=== PATIENT | male | born 1945 | race Caucasian/White ===

== ENCOUNTER 2017-06-04 22:46 | Emergency (ER) | payer OTHER ==
[2017-06-04] MEDS ORDERED: NS 1,000 ML IV ONE (22:54)
--- NOTE | 2017-06-04 22:54 | EDPHY ---
H & P Stated Complaint: CP Time Seen by Provider: 06/04/17 22:54 HPI/ROS: HPI CHIEF COMPLAINT: Left-sided chest pain worse with movement and cough HISTORY OF PRESENT ILLNESS: This patient is a 71-year-old male, he has a history of atrial flutter, normal exercise stress test in 2014, presents emergency room left-sided chest discomfort. Describes is rather sharp pain rather severe nonradiating worse when he coughs or takes a deep breath in. Additionally when he moves the left side of his arm left chest he gets severe left-sided chest pain. He states since or 3 days ago he developed an upper respiratory tract infection with postnasal drip and a cough. Nonproductive in sputum production. He states that every time he coughs he gets rather severe pain left side of his chest. When he does not move or does not cough he has no pain. He has been taking Robitussin and Claritin however this is not been really helping him. Decided come the emergency room as he has severe pain when he coughs or moves. Denies really shortness of breath. Does have some pleuritic pain he takes deep breath in left side of the chest. Past Medical History: History of atrial flutter, 2000 history history of cardiac evaluation with a negative exercise treadmill EF 65% Past Surgical History: Right clavicle surgery. Social History: Denies drugs alcohol tobacco. Family History: Noncontributory ROS REVIEW OF SYSTEMS: A comprehensive 10 point review of systems is otherwise negative aside from elements mentioned in the history of present illness. Exam Constitutional appears well nontoxic no acute distress, triage nursing summary reviewed, vital signs reviewed, awake/alert. Eyes normal conjunctivae and sclera, EOMI, PERRLA. HENT normal inspection, atraumatic, moist mucus membranes, no epistaxis, neck supple/ no meningismus, no raccoon eyes. Respiratory bronchitic sounding cough on exam, clear to auscultation bilaterally, normal breath sounds, no respiratory distress, faint wheezing. Bilaterally. Cardiovascular : Chest wall tender palpation when I press on his left anterior chest wall, no crepitus, rate normal, regular rhythm, no murmur, no edema, distal pulses normal. Gastrointestinal soft, non-tender, no rebound, no guarding, normal bowel sounds, no distension, no pulsatile mass. Genitourinary no CVA tenderness. Musculoskeletal no midline vertebral tenderness, full range of motion, no calf swelling, no tenderness of extremities, no meningismus, good pulses, neurovascularly intact. Skin pink, warm, & dry, no rash, skin atraumatic. Neurologic awake, alert and oriented x 3, AAOx3, moves all 4 extremities equally, motor intact, sensory intact, CN II-XII intact, normal cerebellar, normal vision, normal speech. Psychiatric normal mood/affect. Heme/Lymph/Immune no lymphadenopathy. Differential diagnosis includes but is not limited to: ACS, atypical chest pain , pneumothorax, pneumonia, pulmonary embolism, aortic dissection, congestive heart failure, tumor, musculoskeletal pain, esophageal pain, GERD, peptic ulcer disease, pancreatitis Medical Decision Making: Plan for this patient IV establishment full director of cardiac cath lab obtain EKG to rule out acute coronary syndrome and troponin, however clinically his symptoms are consistent with musculoskeletal chest pain. Or pleurisy. He has severe pain when he coughs or moves left side of his chest. No pain when he is at rest. Re-evaluation: EKG interpretation by me on record in [facility] system. Impression time of EKG 230, sinus rhythm rate of [address] elevation no ST depression no T -wave abnormalities unremarkable nonischemic EKG. When I compare this EKG to his old EKG dated 09/29/2014 is very similar morphology. 2303: Plan for this patient DuoNeb breathing treatment, Toradol for pain control, chest x-ray, D-dimer, troponin EKG. Re-evaluate. This is most likely respiratory/musculoskeletal. 0128: Notified by nursing staff that this patient had a left upper arm IV tourniquet left on. The tourniquet was removed. His left arm is neurovascular intact. Good distal pulse. Good cap refill. Superficial left arm skin impression from tourniquet. I apologized to him about this being left on. He is comfortable with this. As for his chest discomfort. Plan will be for repeat EKG repeat troponin however most likely this is musculoskeletal and with pulmonary process. Plan will be to give albuterol inhaler, prednisone, azithromycin and cough medicine. The patient is comfortable this plan. Will repeat his EKG and troponin however highly unlikely to be acute coronary syndrome. 0200: Patient resting comfortably. EKG interpretation by me on record in [employer] system. Impression this is a repeat EKG time of EKG 1:49 a.m., sinus rhythm rate of 62. No ST elevation no ST depression no significant T-wave abnormalities. EKG is similar to previous EKGs. 0233: Re-examination at this time this patient is resting comfortably. He has no chest pain. He states he feels much better after DuoNeb breathing treatment and IV Toradol. He has had a repeat EKG repeat troponin they are stable. Negative for elevation in troponin and negative for ischemia on the EKG. He has no chest pain. He would like to go home. I prescribed him albuterol, 2 puffs every 4 hr, azithromycin and prednisone. On re-examination his lungs they are clear. Return precautions discussed. He understands return emergency room if develops worsening symptoms includes chest pain, shortness of breath, fever, vomiting questions or concerns. Source: Patient - Personal History Current Tetanus/Diphtheria Vaccine: No Current Tetanus Diphtheria and Acellular Pertussis (TDAP): No - Medical/Surgical History Hx Asthma: No Hx Chronic Respiratory Disease: No Hx Diabetes: No Hx Cardiac Disease: Yes Hx Renal Disease: No Hx Cirrhosis: No Hx Alcoholism: No Hx HIV/AIDS: No Hx Splenectomy or Spleen Trauma: No Other PMH: AFLUTTER, MELLANOMA, RT ROTATOR CUFF, Retinal detachment 10 years ago. - Social History Smoking Status: Never smoked Constitutional: Initial Vital Signs Temperature (C) 36.6 C 06/04/17 22:47 Heart Rate 85 06/04/17 22:47 Respiratory Rate 16 06/04/17 22:47 Blood Pressure 143/77 H 06/04/17 22:47 O2 Sat (%) 95 06/04/17 22:47 O2 Delivery Mode Room Air Allergies/Adverse Reactions: No Known Allergies Allergy (Unverified 06/05/17 00:16) Home Medications: Medication Instructions Recorded Aspirin [Aspirin 81mg (*)] 81 mg PO DAILY 09/29/14 Hydrochlorothiazide [HCTZ (*)] 25 mg PO DAILY 09/29/14 Simvastatin [Zocor] 40 mg PO HS 09/29/14 rOPINIRole HCL [Requip 2mg (*)] 2 mg PO 12,15 09/29/14 rOPINIRole HCL [Requip 2mg (*)] 8 mg PO HS 09/29/14 Hydrocortisone Acetate [Anucort-Hc] 25 mg RC DAILY #10 supp.rect 05/09/15 Polyethylene Glycol 3350 [Miralax] 17 gm PO DAILY #10 pkt 05/09/15 Azithromycin [Zithromax] 250 mg PO DAILY #6 tab 06/05/17 Hydrocodone/APAP 5/325 [[place] 1 - 2 tab PO Q4H PRN #10 tab 06/05/17 5/325] predniSONE 60 mg PO DAILY #15 tab 06/05/17 Medical Decision Making - Diagnostics Imaging Results: Imaging Impressions Chest X-Ray 06/04/17 22:54 Impression: Clear lungs. Negative portable chest. - Data Points Laboratory Results: Laboratory Results 06/04/17 23:09 06/04/17 23:09 06/05/17 06/04/17 06/04/17 01:55 23:09 23:09 WBC RBC Hgb Hct MCV MCH MCHC RDW Plt Count MPV Neut % (Auto) Lymph % (Auto) [place] % (Auto) Eos % (Auto) Baso % (Auto) Nucleat RBC Rel Count Absolute Neuts (auto) Absolute Lymphs (auto) Absolute Monos (auto) Absolute Eos (auto) Absolute Basos (auto) Absolute Nucleated RBC Immature Gran % Immature Gran # PT 13.1 SEC SEC (12.0-15.0) INR 0.97 (0.83-1.16) APTT 26.1 SEC SEC (23.0-38.0) D-Dimer 0.49 ug/mLFEU ug/mLFEU (0.00-0.50) Sodium 140 mEq/L mEq/L (135-145) Potassium 4.1 mEq/L mEq/L (3.5-5.2) Chloride 101 mEq/L mEq/L (97-110) Carbon Dioxide 29 mEq/l mEq/l (22-31) Anion Gap 10 mEq/L mEq/L (8-16) BUN 20 mg/dL mg/dL (7-23) Creatinine 0.8 mg/dL mg/dL (0.7-1.3) Estimated GFR > 60 Glucose 102 mg/dL H mg/dL (70-100) Calcium 8.6 mg/dL mg/dL (8.5-10.4) Magnesium 2.0 mg/dL mg/dL (1.6-2.3) Total Bilirubin 0.6 mg/dL mg/dL (0.1-1.4) Conjugated Bilirubin 0.2 mg/dL mg/dL (0.0-0.5) Unconjugated Bilirubin 0.4 mg/dL mg/dL (0.0-1.1) AST 28 IU/L IU/L (17-59) ALT 21 IU/L IU/L (21-72) Alkaline Phosphatase 83 IU/L IU/L (38-126) Creatine Kinase 134 IU/L IU/L (0-224) CK-MB (CK-2) Fraction 2.20 ng/mL ng/mL (0.00-3.19) Troponin I < 0.012 ng/mL ng/mL < 0.012 ng/mL ng/mL (0.000-0.034) (0.000-0.034) NT-Pro-B Natriuret Pep 138 pg/mL H pg/mL (0-125) Total Protein 5.9 g/dL L g/dL (6.3-8.2) Albumin 3.7 g/dL g/dL (3.5-5.0) Lipase 114 IU/L IU/L (23-300) 06/04/17 23:09 WBC 6.33 10^3/uL 10^3/uL (3.80-9.50) RBC 4.44 10^6/uL 10^6/uL (4.40-6.38) Hgb 13.3 g/dL L g/dL (13.7-17.5) Hct 40.3 % % (40.0-51.0) MCV 90.8 fL fL (81.5-99.8) MCH 30.0 pg pg (27.9-34.1) MCHC 33.0 g/dL g/dL (32.4-36.7) RDW 12.9 % % (11.5-15.2) Plt Count 92 10^3/uL L 10^3/uL (150-400) MPV 10.0 fL fL (8.7-11.7) Neut % (Auto) 69.0 % % (39.3-74.2) Lymph % (Auto) 15.6 % % (15.0-45.0) [place]yer % (Auto) 13.7 % H % (4.5-13.0) Eos % (Auto) 1.1 % % (0.6-7.6) Baso % (Auto) 0.3 % % (0.3-1.7) Nucleat RBC Rel Count 0.0 % % (0.0-0.2) Absolute Neuts (auto) 4.36 10^3/uL 10^3/uL (1.70-6.50) Absolute Lymphs (auto) 0.99 10^3/uL L 10^3/uL (1.00-3.00) Absolute Monos (auto) 0.87 10^3/uL H 10^3/uL (0.30-0.80) Absolute Eos (auto) 0.07 10^3/uL 10^3/uL (0.03-0.40) Absolute Basos (auto) 0.02 10^3/uL 10^3/uL (0.02-0.10) Absolute Nucleated RBC 0.00 10^3/uL 10^3/uL (0-0.01) Immature Gran % 0.3 % % (0.0-1.1) Immature Gran # 0.02 10^3/uL 10^3/uL (0.00-0.10) PT INR APTT D-Dimer Sodium Potassium Chloride Carbon Dioxide Anion Gap BUN Creatinine Estimated GFR Glucose Calcium Magnesium Total Bilirubin Conjugated Bilirubin Unconjugated Bilirubin AST ALT Alkaline Phosphatase Creatine Kinase CK-MB (CK-2) Fraction Troponin I NT-Pro-B Natriuret Pep Total Protein Albumin Lipase Medications Given: Discontinued Medications Albuterol Sulfate (Proventil Inh Prepack) 1 mdi TAKEHOME EDNOW ONE Stop: 06/05/17 01:30 Last Admin: 06/05/17 01:35 Dose: 1 mdi Albuterol/Ipratropium (Duoneb) 3 ml IH EDNOW ONE Stop: 06/04/17 23:01 Last Admin: 06/04/17 23:09 Dose: 3 ml Azithromycin (Zithromax) 500 mg PO EDNOW ONE PRN Reason: Protocol Stop: 06/05/17 01:29 Last Admin: 06/05/17 01:34 Dose: 500 mg Sodium Chloride (Ns) 1,000 mls @ 0 mls/hr IV EDNOW ONE; Wide Open PRN Reason: Protocol Stop: 06/04/17 22:55 Last Admin: 06/04/17 23:09 Dose: 1,000 mls Ketorolac Tromethamine (Toradol) 15 mg IVP EDNOW ONE Stop: 06/04/17 23:41 Last Admin: 06/04/17 23:50 Dose: 15 mg Prednisone (Prednisone) 60 mg PO EDNOW ONE Stop: 06/05/17 01:29 Last Admin: 06/05/17 01:33 Dose: 60 mg Departure - Departure Disposition: Home, Routine, Self-Care Clinical Impression: Bronchitis Condition: Good Instructions: Acute Bronchitis (ED), Chest Wall Pain (ED) Additional Instructions: 1. Return emergency room if he develops worsening pain this includes chest pain , shortness of breath, fever, vomiting Referrals: NONE *PRIMARY CARE P,. [Primary Care Provider] - As per Instructions Prescriptions: Azithromycin [Zithromax] 250 mg PO DAILY #6 tab Hydrocodone/APAP 5/325 [[place] 5/325] 1 - 2 tab PO Q4H PRN #10 tab PRN Reason: Pain, Moderate predniSONE 60 mg PO DAILY #15 tab
[2017-06-04] MEDS ORDERED: IPRATROPIUM/ALBUTEROL 3 ML DEYVIAL IH ONE (23:00)
--- NOTE | 2017-06-04 23:03 | CPEKG ---
Heart Rate: 75 RR Interval: 800 P-R Interval: 140 QRSD Interval: 102 QT Interval: 376 QTC Interval: 420 P [place]: 60 QRS [place]: 58 T Wave [place]: 52 EKG Severity - NORMAL ECG - EKG Impression: SINUS RHYTHM EKG Impression: INCOMPLETE RIGHT BUNDLE BRANCH BLOCK Electronically Signed By: Vazquez Verdin 08-Jun-2017 11:15:26
[2017-06-04 23:23] LABS: PLATELET COUNT 92 10^3/uL (150-400)
[2017-06-04 23:26] LABS: INR 0.97 (0.83-1.16); PROTIME(PATIENT) 13.1 SEC (12.0-15.0)
[2017-06-04 23:33] LABS: CREATINE KINASE 134 IU/L (0-224)
[2017-06-04] MEDS ORDERED: KETOROLAC 15 MG/1 ML SDV IVP ONE (23:40)
[2017-06-05] MEDS ORDERED: predniSONE 20 MG TAB PO ONE (01:28)
[2017-06-05] MEDS ORDERED: AZITHROMYCIN 250 MG TAB PO ONE (01:28)
[2017-06-05] MEDS ORDERED: ALBUTEROL INH PREPACK MDI TAKEHOME ONE (01:29)
--- NOTE | 2017-06-05 01:52 | CPEKG ---
Heart Rate: 62 RR Interval: 968 P-R Interval: 176 QRSD Interval: 104 QT Interval: 416 QTC Interval: 423 P [place]: 80 QRS [place]: 46 T Wave [place]: 30 EKG Severity - NORMAL ECG - EKG Impression: SINUS RHYTHM EKG Impression: INCOMPLETE RIGHT BUNDLE BRANCH BLOCK Electronically Signed By: Vazquez Verdin 08-Jun-2017 11:15:06
[2017-06-05 02:50] VITALS: BP 131/70; PULSE 73; RESP 16; TEMP 98.1; O2SAT 96
== END 2017-06-05 02:50 | disposition home or self-care (01) ==
DX: J20.9 Acute bronchitis, unspecified (principal); E86.9 Volume depletion, unspecified; Z79.82 Long term (current) use of aspirin
CPT/HCPCS: 71045; 93005; 96361; 96374; 99285; J1885; J7512

== ENCOUNTER 2018-01-08 16:28 | Emergency (ER) | payer OTHER ==
[2018-01-08] MEDS ORDERED: DILTIAZEM 25 MG/5 ML VIAL IVP ONE ×2 (16:55→18:26)
--- NOTE | 2018-01-08 17:06 | CPEKG ---
Test Reason : OPEN Blood Pressure : / mmHG Vent. Rate : 125 BPM Atrial Rate : 221 BPM P-R Int : 168 ms QRS Dur : 096 ms QT Int : 321 ms P-R-T Axes : 000 -12 045 degrees QTc Int : 463 ms Atrial fibrillation Abnormal R-wave progression, early transition Confirmed by Darren Serrano ([id number]) on 01/08/2018 5:06:28 PM Referred By: Confirmed By:Darren Serrano
--- NOTE | 2018-01-08 17:06 | EDPHY ---
H & P Stated Complaint: Rapid heart rate at home Time Seen by Provider: 01/08/18 16:40 HPI/ROS: CHIEF COMPLAINT: Palpitations HISTORY OF PRESENT ILLNESS: The patient presents the ED with palpitations and mild dyspnea that began today while he was at the gym. The patient immediately recognized symptoms of recurrent atrial fibrillation/flutter. The patient has a history of this but was treated with ablation 3 years ago. He has not had recurrent atrial flutter or fibrillation since that time. Prior to his ablation the patient had underwent several cardioversions. The patient has no history of coronary artery disease. He denies any fever cough or congestion. The patient denies any exertional chest pain or shortness of breath. The patient denies pleuritic chest pain. He denies asymmetric calf pain or swelling. REVIEW OF SYSTEMS: A comprehensive 10 point review of systems is otherwise negative aside from elements mentioned in the history of present illness. Source: Patient Exam Limitations: No limitations - Personal History Current Tetanus Diphtheria and Acellular Pertussis (TDAP): Yes - Medical/Surgical History Hx Asthma: No Hx Chronic Respiratory Disease: No Hx Diabetes: No Hx Cardiac Disease: Yes Hx Renal Disease: No Hx Cirrhosis: No Hx Alcoholism: No Hx HIV/AIDS: No Hx Splenectomy or Spleen Trauma: No Other PMH: AFLUTTER, MELANOMA, RT ROTATOR CUFF, Retinal detachment 10 years ago. - Social History Smoking Status: Never smoked - Physical Exam Exam: General Appearance: Alert, no distress Eyes: Pupils equal and round no pallor or injection ENT, Mouth: Mucous membranes moist Respiratory: There are no retractions, lungs are clear to auscultation Cardiovascular: Irregular rate, 120 consistent with atrial fibrillation Gastrointestinal: Abdomen is soft and nontender, no masses, bowel sounds normal Neurological: A&O, normal motor function, normal sensory exam, normal cranial nerves Skin: Warm and dry, no rashes Musculoskeletal: Neck is supple nontender Extremities: symmetrical, full range of motion Constitutional: Initial Vital Signs Temperature (C) 36.5 C 01/08/18 16:30 Heart Rate 89 01/08/18 16:30 Respiratory Rate 18 01/08/18 16:30 Blood Pressure 114/65 01/08/18 16:30 O2 Sat (%) 97 01/08/18 16:30 O2 Delivery Mode Room Air Allergies/Adverse Reactions: No Known Allergies Allergy (Verified 01/08/18 16:33) Home Medications: Medication Instructions Recorded Simvastatin [Zocor] 40 mg PO HS 09/29/14 rOPINIRole HCL [Requip 2mg (*)] 2 mg PO 12,15 09/29/14 rOPINIRole HCL [Requip 2mg (*)] 8 mg PO HS 09/29/14 Apixaban [Eliquis] 5 mg PO BID #14 tab 01/08/18 Diltiazem HCl [Diltiazem 24Hr ER] 120 mg PO DAILY #10 cap.er.24h 01/08/18 Medical Decision Making - Diagnostics EKG Interpretation: EKG: Complete interpretation has been separately recorded in the [employer] archive. Summary impression: Atrial fibrillation, rate 125, no ST segment elevation or depression ED Course/Re-evaluation: The patient presents to the ED with recurrent atrial fibrillation without any symptoms suggestive of ischemia. The patient patient has a normal blood pressure. Patient had an IV established and was placed on a cardiac technologist. He received 15 mg of IV diltiazem. The patient did achieve rate control in the emergency department. He is currently in atrial fibrillation with a rate of 84. He has no complaints of chest pain or shortness of breath. His troponin is normal. The patient would like to be discharged home. I did speak with Dr. Zamora from Cardiology. The patient will be discharged home with a prescription for Eliquis and diltiazem. He will contact the office tomorrow morning to schedule a follow-up visit. He understands return to the ED for rapid atrial fibrillation, chest pain or shortness of breath. Differential Diagnosis: Differential diagnosis considered includes atrial fibrillation with rapid ventricular response, atrial flutter, dehydration, metabolic derangement, myocardial infarction - Data Points Laboratory Results: Laboratory Results 01/08/18 16:40 01/08/18 01/08/18 17:09 16:40 Sodium 139 mEq/L mEq/L (135-145) Potassium 4.5 mEq/L mEq/L (3.3-5.0) Chloride 100 mEq/L mEq/L (97-110) Carbon Dioxide 28 mEq/l mEq/l (22-31) Anion Gap 11 mEq/L mEq/L (6-14) BUN 31 mg/dL H mg/dL (7-23) Creatinine 1.3 mg/dL mg/dL (0.7-1.3) Estimated GFR 54 Glucose 101 mg/dL H mg/dL (70-100) Calcium 9.6 mg/dL mg/dL (8.5-10.4) POC Troponin I 0.03 ng/mL ng/mL (0.00-0.08) Medications Given: Discontinued Medications Diltiazem HCl (Cardizem 25 Mg/5 Ml Vial) 15 mg IVP EDNOW ONE Stop: 01/08/18 16:56 Last Admin: 01/08/18 17:06 Dose: 5 mg Diltiazem HCl (Cardizem 25 Mg/5 Ml Vial) 10 mg IVP EDNOW ONE Stop: 01/08/18 18:27 Last Admin: 01/08/18 18:29 Dose: 10 mg Sodium Chloride (Ns) 1,000 mls @ 0 mls/hr IV EDNOW ONE; Wide Open PRN Reason: Protocol Stop: 01/08/18 17:12 Last Admin: 01/08/18 17:12 Dose: 1,000 mls Sodium Chloride (Ns) 1,000 mls @ 0 mls/hr IV EDNOW ONE; Wide Open PRN Reason: Protocol Stop: 01/08/18 17:25 Last Admin: 01/08/18 18:26 Dose: 1,000 mls Ropinirole HCl (Requip) 1 mg PO ONCE ONE Stop: 01/08/18 18:16 Last Admin: 01/08/18 18:28 Dose: 1 mg Point of Care Test Results: Chemistry 01/08/18 17:09 POC Troponin I 0.03 ng/mL ng/mL (0.00-0.08) Departure - Departure Disposition: Home, Routine, Self-Care Clinical Impression: Atrial fibrillation Condition: Good Instructions: A-fib (Atrial Fibrillation) (ED) Additional Instructions: 1. Please contact [facility] tomorrow to schedule a follow-up visit. 2. Please begin Eliquis as prescribed. 3. Diltiazem as needed for rapid heart rate 4. Return to the ED for any chest pain, shortness of breath, markedly elevated heart rate or other concerns. Referrals: Alfredo Zamora MD [Medical Doctor] - As per Instructions Prescriptions: Apixaban [Eliquis] 5 mg PO BID #14 tab Diltiazem HCl [Diltiazem 24Hr ER] 120 mg PO DAILY #10 cap.er.24h
[2018-01-08] MEDS ORDERED: NS 1,000 ML IV ONE ×2 (17:11→17:24)
[2018-01-08] MEDS ORDERED: APIXABAN 5 MG TAB PO ONE (19:17)
[2018-01-08 19:58] VITALS: BP 145/67
== END 2018-01-08 19:57 | disposition home or self-care (01) ==
DX: I48.91 Unspecified atrial fibrillation (principal); E86.9 Volume depletion, unspecified
CPT/HCPCS: 84484-PO; 96374

== ENCOUNTER → 2018-01-26 | Outpatient (CLI) | payer OTHER | LOC: FCPNEURO 20:00 | PROVIDERS: ATTEND Psychiatry & Neurology Sleep Medicine | DX: G47.33 Obstructive sleep apnea (adult) (pediatric) (principal) ==

== ENCOUNTER 2018-02-08 01:15 | Emergency (ER) | payer OTHER ==
[2018-02-08 01:23] VITALS: BP 127/80
--- NOTE | 2018-02-08 02:04 | EDPHY ---
H & P Stated Complaint: RLS WORSENING W/ REQUIP X 3 DAYS Time Seen by Provider: 02/08/18 01:55 HPI/ROS: Chief Complaint: Restless legs HPI: A 72-year-old male with a history of restless leg syndrome. Patient has been taking ropinirole for a long time but has noticed the last 2 days is not been working. He has been unable sleep because of his symptoms. He also has a history of atrial fibrillation is on Eliquis. No fevers or chills. No numbness or weakness. No headache. He has been unable to sleep because his symptoms. He has no point with Neurology in 5 days but feels he cannot wait because he has been an able to sleep. ROS PMH: Restless legs syndrome, atrial fibrillation Social History: No smoking, no alcohol, no recreational drug use Family History: non-contributory Physical Exam: Gen: Awake, Alert, No Distress HEENT: Nose: no rhinorrhea Eyes: PERRLA, EOMI Mouth: Moist mucosa Neck: Supple, no JVD Chest: nontender, lungs clear to auscultation Heart: S1, S2 normal, no murmur Abd: Soft, non-tender, no guarding Back: no CVA tenderness, no midline tenderness Ext: no edema, non-tender Skin: no rash Neuro: CN II-XII intact, Sensation grossly intact, Strength 5/5 in bilateral upper and lower extremities - Personal History Current Tetanus Diphtheria and Acellular Pertussis (TDAP): Yes - Medical/Surgical History Hx Asthma: No Hx Chronic Respiratory Disease: No Hx Diabetes: No Hx Cardiac Disease: Yes Hx Renal Disease: No Hx Cirrhosis: No Hx Alcoholism: No Hx HIV/AIDS: No Hx Splenectomy or Spleen Trauma: No Other PMH: AFLUTTER, MELANOMA, RT ROTATOR CUFF, Retinal detachment 10 years ago , RLS - Social History Smoking Status: Never smoked Constitutional: Initial Vital Signs Temperature (C) 36.4 C 02/08/18 01:19 Heart Rate 78 02/08/18 01:19 Respiratory Rate 16 02/08/18 01:19 Blood Pressure 127/80 H 02/08/18 01:19 O2 Sat (%) 93 02/08/18 01:19 O2 Delivery Mode Room Air Allergies/Adverse Reactions: No Known Allergies Allergy (Verified 01/08/18 16:33) Home Medications: Medication Instructions Recorded Simvastatin [Zocor] 40 mg PO HS 09/29/14 rOPINIRole HCL [Requip 2mg (*)] 2 mg PO 12,15 09/29/14 rOPINIRole HCL [Requip 2mg (*)] 8 mg PO HS 09/29/14 Apixaban [Eliquis] 5 mg PO BID #14 tab 01/08/18 Diltiazem HCl [Diltiazem 24Hr ER] 120 mg PO DAILY #10 cap.er.24h 01/08/18 Diazepam 5 mg PO HS #10 tablet 02/08/18 Medical Decision Making ED Course/Re-evaluation: 72-year-old male with a history of restless leg syndrome with worsening symptoms. He has an appoint with Neurology in 5 days. He is already on ropinerol. Will give him a few days worth of benzodiazepines, Valium, until aching see his neurologist. Departure - Departure Disposition: Home, Routine, Self-Care Clinical Impression: Restless leg syndrome Condition: Good Instructions: Restless Legs Syndrome (ED) Additional Instructions: You may take Valium, 5 mg at night until you see your neurologist. Follow up with your neurologist in 5 days as scheduled. Referrals: Thi Alfaro PA [Primary Care Provider] - As per Instructions Prescriptions: Diazepam 5 mg PO HS #10 tablet
== END 2018-02-08 02:17 | disposition home or self-care (01) ==
DX: G25.81 Restless legs syndrome (principal); I48.91 Unspecified atrial fibrillation; Z79.899 Other long term (current) drug therapy

== ENCOUNTER → 2018-06-28 | Outpatient (CLI) | payer OTHER | LOC: FCPNEURO 23:00 | PROVIDERS: ATTEND Student in an Organized Health Care Education/Training Program | DX: G47.33 Obstructive sleep apnea (adult) (pediatric) (principal); G47.31 Primary central sleep apnea ==